=== PATIENT | female | born 1940 | race Caucasian/White ===

== ENCOUNTER → 2019-01-23 | Outpatient (CLI) | payer MEDICARE ==
[~2019-01-23] MED LIST: ATIVAN0.5 MG PO; CYMBALTA; HYDROCODONE-AP1 EAC6 PO; KEFLEX500 MG PO; LEVOTHYROXIN0.112 M1 PO; OXYCODONE HCL 55 MG PO; PREDNISONE; PROAIR HFA8.5 GM INH; XARELTO10 MG PO
== END ==
LOC: M.RAD 12-02 14:30
DX: M81.0 Age-related osteoporosis without current pathological fracture (principal); Z78.0 Asymptomatic menopausal state

== ENCOUNTER 2019-03-14 12:06 | Emergency (ER) | payer MEDICARE ==
[~2019-03-14] VITALS: Ht 172.7 cm; Wt 77.7 kg
[2019-03-14] MEDS ORDERED: SINGULAIR 10 MG10 M1 PO (12:35)
[2019-03-14] MEDS ORDERED: IBUPROFEN 200200 M1 PO (12:36)
[2019-03-14] MEDS ORDERED: TYLENOL PM EX-1 EACH PO (12:37)
[2019-03-14 12:46] LABS: PCO2 30.4 mmHg (35.0-45.0); PO2 106.4 mmHg (75.0-100.0); pH 7.454 (7.340-7.450)
[2019-03-14 12:49] LABS: ABSOLUTE BASOPHILS 0.1 thou/uL (0.0-0.2); ABSOLUTE EOSINOPHILS 0.1 thou/uL (0.0-0.7); ABSOLUTE MONOCYTES 0.7 thou/uL (0.0-1.2); ABSOLUTE NEUTROPHILS 5.1 thou/uL (1.6-8.1); BASOPHILS 1.2 %; HEMATOCRIT 40.1 % (37.0-47.0); HEMOGLOBIN 13.3 gm/dL (12.0-15.0); LYMPHOCYTES 24.8 %; MCH 29.8 pg (26.0-34.0); MCHC 33.1 g/dL (28.0-37.0); MONOCYTES 8.6 %; NUCLEATED RBCS 0 /100WBC; PLATELET COUNT* 440 thou/uL (150-400); POLYS 64.4 %; RBC 4.46 mil/uL (4.20-5.00); RDW-CV 14.7 % (10.5-14.5); WBC 7.9 thou/uL (4.0-11.0)
[2019-03-14 12:58] LABS: ANION GAP 11 mmol/L (7-16); BUN 12 mg/dL (7-18); CALCIUM 9.7 mg/dL (8.5-10.1); CHLORIDE 99 mmol/L (98-107); CO2 26 mmol/L (21-32); CREATININE 0.8 mg/dL (0.6-1.3); GLUCOSE 108 mg/dL (70-99); POTASSIUM 3.5 mmol/L (3.5-5.1); SODIUM 136 mmol/L (136-145)
[2019-03-14 13:09] LABS: ALBUMIN 3.9 g/dL (3.4-5.0); ALKALINE PHOSPHATASE 91 U/L (46-116); LIPASE 59 U/L (73-393); NT-PRO BRAIN NAT PEPTIDE 706 pg/mL (<300); SGOT 22 U/L (15-37); SGPT 17 U/L (30-65); TOTAL BILIRUBIN 0.7 mg/dL (<0.1-1.0); TOTAL PROTEIN 7.6 g/dL (6.4-8.2); TROPONIN-I LEVEL <0.06 ng/mL (<0.06)
[2019-03-14 13:10] LABS: PROTIME 10.5 Seconds (9.20-11.50)
[2019-03-14 15:30] LABS: URINE BLOOD 2+ (Negative); URINE CLARITY CLEAR; URINE COLOR YELLOW; URINE GLUCOSE-RANDOM NEGATIVE (Negative); URINE LEUKOCYTES-REFLEX TRACE (Negative); URINE NITRITE-REFLEX NEGATIVE (Negative); URINE PROTEIN TRACE (Negative); URINE SPECIFIC GRAVITY 1.025 (1.005-1.030); URINE UROBILINOGEN 0.2 E.U./dl (0.2-1.0)
[2019-03-14 15:32] LABS: ICTOTEST (BILI CONFIRMATORY) Negative (Negative); URINE BILIRUBIN 1+ (Negative); URINE KETONES 3+ (Negative)
[2019-03-14 15:38] LABS: MUCUS 0-3 Light strn/LPF (None Seen); SQUAMOUS >10 Many /LPF (0-3)
[2019-03-14 15:39] LABS: BACTERIA-REFLEX 1-9 Few /HPF (None Seen); URINE WBC-REFLEX 6-15 Few /HPF (0-5)
[2019-03-14 15:40] LABS: CASTS None Seen /LPF (None Seen); CRYSTALS None Seen /LPF (None Seen); URINE RBC 3-10 Few /HPF (0-2)
[2019-03-14] MEDS ORDERED: KEFLEX500 M1 PO (16:04)
[2019-03-14] MEDS ORDERED: KEFLEX500 M2 PO (16:05)
[2019-03-14 16:25] VITALS: BP 136/100
--- NOTE | 2019-03-14 16:37 | EKG ---
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 Engineer: T[place] : 1940 Requested By: Yomaira Negrete Order Number: [id number] MD: Colt Espinal Measurements Intervals [place] Rate: 83 P: 7 CA: 175 QRS: -31 QRSD: 105 T: 58 QT: 344 QTc: 405 Interpretive Statements Sinus rhythm Atrial premature complexes Left ventricular hypertrophy Anterior infarct, old Baseline wander in lead(s) V5 Compared to ECG 09/09/2015 10:35:37 Atrial premature complex(es) now present Myocardial infarct finding now present Sinus tachycardia no longer present T-wave abnormality no longer present Electronically Signed On 03-14-2019 16:37:36 CDT by Colt Espinal [email or web address] <ELECTRONICALLY SIGNED> By: Colt Espinal MD, FACC 03/14/19 1637 1215 1215 Colt Espinal MD, FAC /EPI
== END 2019-03-14 16:25 | disposition home or self-care (01) ==
LOC: M.ERS 12:06
PROVIDERS: Personal Emergency Response Attendant
DX: R41.0 Disorientation, unspecified (principal); I10 Essential (primary) hypertension; J44.9 Chronic obstructive pulmonary disease, unspecified; F41.9 Anxiety disorder, unspecified; F32.9 Major depressive disorder, single episode, unspecified; M79.7 Fibromyalgia; Z88.8 Allergy status to other drugs, medicaments and biological substances

== ENCOUNTER 2019-07-05 14:32 | Emergency (ER) | payer MEDICARE ==
[~2019-07-05] VITALS: Ht 175.3 cm; Wt 77.1 kg
[~2019-07-05 14:32] MED LIST changes: +IBUPROFEN 200200 M1 PO; +KEFLEX500 M1 PO; +KEFLEX500 M2 PO; +SINGULAIR 10 MG10 M1 PO; +TYLENOL PM EX-1 EACH PO
[2019-07-05 14:45] VITALS: BP 146/84
[2019-07-05] MEDS ORDERED: CELEXA10 MG PO (14:52)
[2019-07-05] MEDS ORDERED: NYSTATIN15 G1 TOP (15:10)
[2019-07-05] MEDS ORDERED: DIFLUCAN150 M1 PO (15:10)
== END 2019-07-05 15:15 | disposition home or self-care (01) ==
LOC: M.ERS 14:32
DX: B37.3 Candidiasis of vulva and vagina (principal); M79.7 Fibromyalgia; I10 Essential (primary) hypertension; J44.9 Chronic obstructive pulmonary disease, unspecified; F41.9 Anxiety disorder, unspecified; Z88.8 Allergy status to other drugs, medicaments and biological substances

== ENCOUNTER 2019-08-23 15:28 | Emergency (ER) | payer MEDICARE ==
[~2019-08-23] VITALS: Ht 177.8 cm; Wt 79.4 kg
[~2019-08-23 15:28] MED LIST changes: +CELEXA10 MG PO; +DIFLUCAN150 M1 PO; +NYSTATIN15 G1 TOP
[2019-08-23] MEDS ORDERED: NEURONTIN 300M300 M2 PO (15:40)
[2019-08-23 15:59] LABS: ABSOLUTE EOSINOPHILS 0.7 thou/uL (0.0-0.7); ABSOLUTE LYMPHOCYTES 1.5 thou/uL (0.8-5.3); ABSOLUTE MONOCYTES 0.5 thou/uL (0.0-1.2); ABSOLUTE NEUTROPHILS 4.8 thou/uL (1.6-8.1); BASOPHILS 0.5 %; EOSINOPHILS 9.1 %; HEMATOCRIT 35.4 % (37.0-47.0); HEMOGLOBIN 11.8 gm/dL (12.0-15.0); LYMPHOCYTES 19.9 %; MCH 30.8 pg (26.0-34.0); MCHC 33.5 g/dL (28.0-37.0); MCV 92.1 fL (80.0-100.0); MONOCYTES 6.9 %; MPV 7.2 fl. (7.2-11.1); NUCLEATED RBCS 0 /100WBC; PLATELET COUNT* 410 thou/uL (150-400); POLYS 63.6 %; RBC 3.84 mil/uL (4.20-5.00); RDW-CV 13.6 % (10.5-14.5); WBC 7.5 thou/uL (4.0-11.0)
[2019-08-23 16:09] LABS: PROTIME 10.2 Seconds (9.20-11.50)
[2019-08-23 16:18] LABS: BE 0.3 mmol/L (-2 to +3); PCO2 39.9 mmHg (35.0-45.0); PO2 95.3 mmHg (75.0-100.0); pH 7.412 (7.340-7.450)
[2019-08-23 16:39] LABS: ALBUMIN 3.1 g/dL (3.4-5.0); CALCIUM 8.8 mg/dL (8.5-10.1); CREATININE 0.7 mg/dL (0.6-1.3); POTASSIUM 4.4 mmol/L (3.5-5.1); TOTAL BILIRUBIN 0.4 mg/dL (<0.1-1.0); TOTAL PROTEIN 6.9 g/dL (6.4-8.2)
[2019-08-23] MEDS ORDERED: ZPAK PO (17:51)
[2019-08-23] MEDS ORDERED: PREDNISONE 10 M10 M1 PO (17:51)
[2019-08-23 18:54] VITALS: BP 160/90
--- NOTE | 2019-08-24 13:20 | EKG ---
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: [facility] : 1940 Requested By: Yomaira Negrete Order Number: [id number] MD: Addison John Measurements Intervals [place] Rate: 63 P: 42 NV: 216 QRS: -37 QRSD: 109 T: 62 QT: 397 QTc: 407 Interpretive Statements Sinus rhythm with first-degree AV block Left axis deviation Anterior infarct, old Baseline wander in lead(s) I Compared to ECG 03/14/2019 12:15:32 Left-axis deviation now present Atrial premature complex(es) no longer present Left ventricular hypertrophy no longer present Myocardial infarct finding still present Electronically Signed On 08-24-2019 13:20:26 CDT by Addison John [email or web address] <ELECTRONICALLY SIGNED> By: Addison John MD, FACC 08/24/19 1320 1533 1533 Addison John MD, FACC /EPI
== END 2019-08-23 18:55 | disposition home or self-care (01) ==
LOC: M.ERS 15:28
PROVIDERS: Personal Emergency Response Attendant
DX: J44.1 Chronic obstructive pulmonary disease with (acute) exacerbation (principal); F41.9 Anxiety disorder, unspecified; F32.9 Major depressive disorder, single episode, unspecified; M79.7 Fibromyalgia; Z88.8 Allergy status to other drugs, medicaments and biological substances

== ENCOUNTER 2019-10-03 07:16 | Emergency (ER) | payer MEDICARE ==
[~2019-10-03] VITALS: Ht 172.7 cm; Wt 81.7 kg
[~2019-10-03 07:16] MED LIST changes: +NEURONTIN 300M300 M2 PO; +PREDNISONE 10 M10 M1 PO; +ZPAK PO
[2019-10-03] MEDS ORDERED: LEVO-T100 MCG PO (07:30)
[2019-10-03 09:05] LABS: URINE BILIRUBIN NEGATIVE (Negative); URINE BLOOD 1+ (Negative); URINE CLARITY CLEAR; URINE COLOR YELLOW; URINE GLUCOSE-RANDOM NEGATIVE (Negative); URINE KETONES NEGATIVE (Negative); URINE NITRITE-REFLEX NEGATIVE (Negative); URINE PROTEIN TRACE (Negative); URINE SPECIFIC GRAVITY 1.015 (1.005-1.030); URINE UROBILINOGEN 0.2 E.U./dl (0.2-1.0)
[2019-10-03 09:08] LABS: URINE LEUKOCYTES-REFLEX 2+ (Negative)
[2019-10-03 09:11] LABS: SQUAMOUS 4-10 Moderate /LPF (0-3)
[2019-10-03 09:12] LABS: URINE WBC-REFLEX 6-15 Few /HPF (0-5)
[2019-10-03 09:13] LABS: CRYSTALS None Seen /LPF (None Seen); HYALINE CASTS 4-10 Moderate /LPF (None Seen); MUCUS 4-6 Moderate strn/LPF (None Seen)
[2019-10-03] MEDS ORDERED: NORCO 5-325 TA1 EAC1 PO (09:24)
[2019-10-03] MEDS ORDERED: KEFLEX500 M1 PO (09:24)
[2019-10-03 09:53] VITALS: BP 154/82
== END 2019-10-03 09:40 | disposition home or self-care (01) ==
LOC: M.ERS 07:16
PROVIDERS: Emergency Medicine Emergency Medical Services
DX: M54.5 Low back pain (principal); N39.0 Urinary tract infection, site not specified; I10 Essential (primary) hypertension; F41.9 Anxiety disorder, unspecified; F32.9 Major depressive disorder, single episode, unspecified; J44.9 Chronic obstructive pulmonary disease, unspecified; Z88.8 Allergy status to other drugs, medicaments and biological substances

== ENCOUNTER → 2019-10-15 | Outpatient (CLI) | payer MEDICARE ==
[~2019-10-15] MED LIST changes: +ASPIRIN325 PO; +CEFUROXIME250 MG PO; +HYDROCODON-ACE1 EAC7 PO; +HYDROXYZINE HCL25 M2 PO; +LEVO-T100 MCG PO; +MELATONIN10 M3 PO; +NORCO 5-325 TA1 EAC1 PO; +NYSTATIN15 G2 TOP; +SENNA PLUS TAB1 EACH PO
== END ==
LOC: M.MRI 10-13 14:30
DX: M47.817 Spondylosis without myelopathy or radiculopathy, lumbosacral region (principal); M41.86 Other forms of scoliosis, lumbar region; M51.46 Schmorl's nodes, lumbar region; M48.07 Spinal stenosis, lumbosacral region; M48.061 Spinal stenosis, lumbar region without neurogenic claudication; M51.25 Other intervertebral disc displacement, thoracolumbar region; M47.815 Spondylosis without myelopathy or radiculopathy, thoracolumbar region; M51.26 Other intervertebral disc displacement, lumbar region

== ENCOUNTER 2019-10-16 09:31 | Inpatient (IN) | payer MEDICARE ==
[~2019-10-16] VITALS: Ht 175.3 cm; Wt 86.5 kg
[~2019-10-16 09:31] MED LIST changes: -ASPIRIN325 PO; -CEFUROXIME250 MG PO; -HYDROCODON-ACE1 EAC7 PO; -HYDROXYZINE HCL25 M2 PO; -MELATONIN10 M3 PO; -NYSTATIN15 G2 TOP; -SENNA PLUS TAB1 EACH PO
[2019-10-16 09:32] VITALS: BP 163/91
[2019-10-16 10:27] LABS: HEMATOCRIT 39.8 % (37.0-47.0); HEMOGLOBIN 13.1 gm/dL (12.0-15.0); MCH 30.5 pg (26.0-34.0); MCV 92.5 fL (80.0-100.0); MPV 6.9 fl. (7.2-11.1); NUCLEATED RBCS 0 /100WBC; PLATELET COUNT* 384 thou/uL (150-400); RDW-CV 14.8 % (10.5-14.5); WBC 10.6 thou/uL (4.0-11.0)
[2019-10-16 10:31] LABS: URINE BILIRUBIN NEGATIVE (Negative); URINE BLOOD 2+ (Negative); URINE CLARITY SL CLOUDY; URINE COLOR YELLOW; URINE GLUCOSE-RANDOM NEGATIVE (Negative); URINE KETONES NEGATIVE (Negative); URINE LEUKOCYTES-REFLEX 2+ (Negative); URINE NITRITE-REFLEX POSITIVE (Negative); URINE PROTEIN 2+ (Negative); URINE SPECIFIC GRAVITY 1.025 (1.005-1.030); URINE UROBILINOGEN 0.2 E.U./dl (0.2-1.0)
[2019-10-16 10:35] LABS: INR 1.1; PROTIME 10.8 Seconds (9.20-11.50)
[2019-10-16 10:39] LABS: MUCUS 0-3 Light strn/LPF (None Seen); SQUAMOUS 4-10 Moderate /LPF (0-3); URINE RBC 3-10 Few /HPF (0-2); URINE WBC-REFLEX 6-15 Few /HPF (0-5)
[2019-10-16 10:40] LABS: AMORPHOUS PHOSPHATES Few /LPF (None Seen); FINE GRANULAR CASTS 0-3 Few /LPF (None Seen)
[2019-10-16 10:42] LABS: POTASSIUM 3.5 mmol/L (3.5-5.1); TOTAL BILIRUBIN 0.8 mg/dL (<0.1-1.0); TOTAL PROTEIN 7.7 g/dL (6.4-8.2)
[2019-10-16 10:47] LABS: ABSOLUTE BASOPHILS 0.1 thou/uL (0.0-0.2); ABSOLUTE MONOCYTES 0.7 thou/uL (0.0-1.2); ABSOLUTE NEUTROPHILS 8.8 thou/uL (1.6-8.1); ANISOCYTOSIS 1+; PLATELET ESTIMATE ADEQUATE; POIKILOCYTOSIS 1+
[2019-10-16 10:49] LABS: ALBUMIN 3.7 g/dL (3.4-5.0); CALCIUM 8.9 mg/dL (8.5-10.1); CREATININE 0.7 mg/dL (0.6-1.3)
--- NOTE | 2019-10-16 11:32 | NUR ---
WILBERTO Urbna NOTIFIED UPON PT RETURN FROM CT AND THAT SHE WAS NOT CONNECTED TO O2 SHE WAS NOT PRIOR TO GOING TO CT. PT WAS CONNECTED TO EKG AND PULSE OX MONITOR SHE WAS PRIOR TO GOING TO CT
[2019-10-16 12:13] VITALS: BP 166/82
[2019-10-16 13:00] VITALS: BP 156/78
--- NOTE | 2019-10-16 15:19 | EKG ---
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: : 1940 Requested By: Nadir Rodriguez Order Number: [id number] MD: Joshua Coleman Measurements Intervals [place] Rate: 91 P: 50 OK: 207 QRS: -43 QRSD: 108 T: 105 QT: 345 QTc: 425 Interpretive Statements Sinus rhythm Borderline prolonged OK interval Consider left atrial enlargement LVH with secondary repolarization abnormality Anterior Q waves, possibly due to LVH Baseline wander in lead(s) I,aVL Compared to ECG 08/23/2019 15:33:48 no change Electronically Signed On 10-16-2019 15:19:31 GIRLS TENNIS COACH by Joshua Coleman [email or web address] <ELECTRONICALLY SIGNED> By: Joshua Coleman MD, [facility] 10/16/19 1519 1008 1008 Joshua Coleman MD, [facility] /EPI
--- NOTE | 2019-10-16 18:39 | NUR ---
PT AWAKE AND ALERT, BUT CONFUSED. HX DEMENTIA. PT IN BED WITH CALL LIGHT IN REACH, BED ALARM SET FOR SAFETY. PT REMOVED STAT-LOCK FROM VARMA X2. RFA SECURED WITH COBAN TO ATTEMPT TO PROTECT ACCESS. PT REMOVES DRESSINGS. PT FOUND TO BE SITTING AT END OF BED UPON RESPONDING TO BED ALARM. PT ASSISTED BACK TO BED AND ALARM RESET. HOUSE SUPER NOTIFIED OF PT NEED FOR EXTRA OBSERVATION. IV MEDS SUSPENDED AT THIS TIME PT WILL NOT STOP PULLING ON TUBES AND REMOVING PROTECTIVE DRESSINGS AT THIS TIME. VARMA REMAINS PATENT AND YELLOW URINE VISIBLE IN COLLECTION BAG. PT OFFERED VEGETARIAN DINNER OPTION, LESS THAN 25% OF MEAL CONSUMED. WILL CONTINUE TO MONITOR.
[2019-10-16 20:00] VITALS: BP 132/71
[2019-10-17 02:10] LABS: GLYCOHEMOGLOBIN (HGB A1C) 5.6 % (4.8-5.6)
[2019-10-17 04:07] LABS: HEMATOCRIT 34.5 % (37.0-47.0); HEMOGLOBIN 11.3 gm/dL (12.0-15.0); MCH 30.5 pg (26.0-34.0); MCHC 32.7 g/dL (28.0-37.0); MCV 93.1 fL (80.0-100.0); MPV 7.1 fl. (7.2-11.1); RBC 3.71 mil/uL (4.20-5.00); RDW-CV 15.2 % (10.5-14.5); WBC 7.9 thou/uL (4.0-11.0)
[2019-10-17 04:37] LABS: ALBUMIN 3.1 g/dL (3.4-5.0); CALCIUM 8.1 mg/dL (8.5-10.1); CREATININE 0.8 mg/dL (0.6-1.3); POTASSIUM 3.6 mmol/L (3.5-5.1); TOTAL BILIRUBIN 0.8 mg/dL (<0.1-1.0); TOTAL PROTEIN 6.3 g/dL (6.4-8.2)
--- NOTE | 2019-10-17 06:14 | NUR ---
PT SETTING OFF BED ALARM 3 TIMES OVERNIGHT PUTTING LEGS TO SIDE OF BED. AO TO SELF, CONFUSED AND FORGETFUL. CALMS EASILY WHEN IT IS EXPLAINED WHY SHE IS HERE AND PLAN OF CARE. VARMA DRAINING DARK YELLOW, EMPERATRIZ URINE. L ELBOW SKIN TEAR CLEANSED AND DRSG PLACED. HAS BEEN NPO SINCE MIDNIGHT PER ORDERS. AM LABS DRAWN. R HAND IVF INFUSING PER PUMP, ABX GIVEN ORDERED. RED INFLAMMED TIMO AREA, [place] CREAM APPLIED ORDERED. ORTHO FOLLOWING FOR L HIP FX REPAIR. PULLS OF VARMA CATHETER STAT LOCKS, SEEN PULLING AT IV ONCE THIS SHIFT BUT STOPPED WHEN EXPLAINED WHAT IS WAS AND WHY IT WAS THERE. CALL LITE IN EASY REACH, BED ALARM ON FOR SAFETY. FALL PRECAUTIONS IN PLACE.
--- NOTE | 2019-10-17 07:02 | NUR ---
PT TRANSFERRED PER BED TO ROOM 304 FOR CLOSER OBSERVATION, WITH BELONGINGS. BED ALARM ON FOR SAFETY. CALL LITE IN EASY REACH.
[2019-10-17 07:35] VITALS: BP 138/77
[2019-10-17 08:44] VITALS: BP 132/71
--- NOTE | 2019-10-17 10:30 | NUR ---
MET WITH PT, SPOUSE/KAREEM AND SON/ELSI TO DISCUSS HOME SITUATION/DC PLANNING. PT LIVES WITH SPOUSE AND SON. SHE NEEDS ASSIST WITH ADLS BUT IS FAIRLY INDEPENDENT. PER KAREEM, SHE USES A CANE BUT SHOULD USE A WALKER D/T HER 'UNSTEADINESS.' KAREEM IS DPOA AND WAS INSISTENT THAT PT STATES SHE IS 'DNR.' NURSE AND DR HORTA UPDATED. PT HAS EQUIPMENT AT HOME THAT SHE USES NEEDED. IE: WALKER, W/C, GRAB BARS, SCOOTER, CANE, TOILET RISER BSC AND GAIT BELT. SHE HAS HAD HH IN PAST THEY THINK THRU JS AT HOME. PT HAS NOT BEEN TO SNF BUT ALL IN AGREEMENT PROBABLY NEEDS TO GO THERE AT DC. GAVE LIST AND DISCUSSED OPTIONS. THEY ARE INTERESTED IN [facility] OR [facility]. WILL FOLLOW AND REASSESS AFTER SURGERY AND THERAPY
--- NOTE | 2019-10-17 11:40 | NUR ---
PT AWAKE/ALERT VSS. PT TRANSPORTED TO PACU ON CART WITH NS RUNNING.
--- NOTE | 2019-10-17 11:58 | NUR ---
WOUND CARE NOTE: CONSULTS RECEIVED FOR PERINEAL DESQUAMATION AND ABRASIONS, SKIN TEARS LEANDRA ATTEMPTED TO ASSESS PATIENT. SHE IS CURRENTLY IN SURGERY.
--- NOTE | 2019-10-17 18:41 | NUR ---
PT RETURNED TO UNIT APPROX 1710. PT AWAKE/ALERT, VSS. PT URINARY CATHETER PATENT, YELLOW URINE VISIBLE IN COLLECTION DEVICE PT PLACED ON CONTINUOUS O2 SAT MONITORING ORDERED. PT ON 3L O2. PT ARRIVED TO UNIT WITH ICE PACK TO L HIP. FAMILY AT BEDSIDE. BED ALARM ON FOR PT SAFETY. PT RESTS IN ROOM IN VIEW OF THE NURSES STATION. CALL LIGHT IN REACH. WILL CONTINUE TO MONITOR.
[2019-10-17 20:47] VITALS: BP 109/78
[2019-10-18] VITALS: BP 125/77
[2019-10-18 04:09] LABS: HEMATOCRIT 27.3 % (37.0-47.0); MCHC 33.1 g/dL (28.0-37.0); MCV 93.7 fL (80.0-100.0); MPV 7.6 fl. (7.2-11.1); RBC 2.91 mil/uL (4.20-5.00); RDW-CV 15.6 % (10.5-14.5); WBC 10.6 thou/uL (4.0-11.0)
[2019-10-18 04:22] LABS: CALCIUM 8.2 mg/dL (8.5-10.1); CREATININE 0.9 mg/dL (0.6-1.3); MAGNESIUM 2.1 mg/dL (1.8-2.4); POTASSIUM 4.2 mmol/L (3.5-5.1)
--- NOTE | 2019-10-18 06:43 | NUR ---
Pt restless and impulsive for early part of shift. Pt attempted to get out of bed on two occasions; once at 2044, and again at 139. Dressing became saturated with sanguinous drng after first attempt to get out of bed. Dressing changed after second attempt. Some slow oozing from incision site noted, but rudolph intact. New dressing remains dry and intact this morning. Abduction pillow placed this am. Pt did not have one for most of shift. Pt had pulled IV out early in shift, pulled off ID and DNR bracelets, and removed stat-lock from zavala 3 times. Pt also removed NC at times; desats to mid-80s when on RA. Low output from zavala overnight: 195 ml concentrated ira urine. Still receiving IVF @ 100 ml/hr. Pt received dose of Fentanyl times one after 2nd attempt at getting out of bed. Pt denied pain, but was frequently groaning in pain. Pt was much calmer and more cooperative after receiving the Fentanyl, and appeared to be asleep for much of the remainder of the shift. Will continiue to monitor.
[2019-10-18 07:19] VITALS: BP 135/67
--- NOTE | 2019-10-18 14:03 | NUR ---
ASSESSMENT COMPLETE. PT ALERT AND ORIENTED TO SELF. PT CONFUSED AND FORGETFUL. FAMILY AT BEDSIDE MOST OF THE DAY. TOLERATING 50% OF MEALS. PT HAS VARMA IN PLACE FOR IMMOBILITY. PT Q2 TURN. ABDUCTOR IN PLACE. PT UP IN CHAIR FOR 2 HOURS TODAY. PHYSICAL THERAPY WORKED WITH PATIENT THIS MORNING. UP MOD ASSIST WITH GAIT BELT AND WALKER. PT IS ON ROOM AIR, VSS. REHAB CONSULT. PT TOLERATING MEALS AND DENIES N/V. PAIN MEDICATIONS GIVEN NEEDED. SEE ASSESSMENT AND VITALS FOR OTHER DETAILS. CALL LIGHT WITHIN REACH. BED ALARM ON. WILL CONTINUE PLAN OF CARE
[2019-10-18 15:23] VITALS: BP 100/60
[2019-10-18 19:30] VITALS: BP 131/72
[2019-10-19 04:35] LABS: ABSOLUTE BASOPHILS 0.1 thou/uL (0.0-0.2); ABSOLUTE EOSINOPHILS 0.1 thou/uL (0.0-0.7); ABSOLUTE LYMPHOCYTES 2.2 thou/uL (0.8-5.3); ABSOLUTE MONOCYTES 1.1 thou/uL (0.0-1.2); ABSOLUTE NEUTROPHILS 4.3 thou/uL (1.6-8.1); BASOPHILS 0.8 %; EOSINOPHILS 1.3 %; HEMATOCRIT 21.8 % (37.0-47.0); HEMOGLOBIN 7.3 gm/dL (12.0-15.0); MCHC 33.3 g/dL (28.0-37.0); MCV 93.1 fL (80.0-100.0); MONOCYTES 13.7 %; MPV 7.3 fl. (7.2-11.1); NUCLEATED RBCS 1 /100WBC; PLATELET COUNT* 310 thou/uL (150-400); POLYS 56.2 %; RBC 2.34 mil/uL (4.20-5.00); RDW-CV 15.5 % (10.5-14.5); WBC 7.7 thou/uL (4.0-11.0)
[2019-10-19 04:40] LABS: ALBUMIN 2.6 g/dL (3.4-5.0); CALCIUM 8.1 mg/dL (8.5-10.1); CREATININE 1.1 mg/dL (0.6-1.3); TOTAL BILIRUBIN 0.3 mg/dL (<0.1-1.0); TOTAL PROTEIN 5.8 g/dL (6.4-8.2)
--- NOTE | 2019-10-19 05:20 | NUR ---
ASSUMED PATIENT CARE AT 1900. PATIENT ALERT TO SELF. TOOK ALL MEDICATION BY MOUTH. COMPULSIVE. ATTEMPTED TO GET OUT OF BED A COUPLE OF TIMES. FALL RISK PRECAUTIONS IN PLACE. HIP PRECATIONS IN PLACE. SURGICAL WOUND REDRESSED R/T PATIENT MOVEMENT CAUSING BLEEDIND. ALL MACK IN PLACE AND WOUND APPROXIMATED WELL. NEW DRESSING C/D/I. INFECTION CONTROL SPECIALIST AND HOURLY ROUNDING COMPLETED CHARTED.
[2019-10-19 08:00] VITALS: BP 152/79
[2019-10-19 16:00] VITALS: BP 136/68
[2019-10-19 17:16] VITALS: BP 141/82; BP 145/87
--- NOTE | 2019-10-19 18:36 | NUR ---
ASSESSMENT COMPLETE. PT CONFUSED AND IMPULSIVE THROUGHOUT THE DAY. IV PULLED OUT. PT CLIMBED OUT OF BED MULTIPLE TIMES AND PULLS AT VARMA. PT HAD TRANSFUSION STARTED THIS EVENING. DUE TO PT CLIMBING OUT OF BED AND NOT FOLLOWING HIP PRECUATIONS, XRAY OF HIP DONE RESULTS WNL. PT HAS CONTINOUS PULSE OX WHILE BLOOD IS TRANSFUSING. SEE ASSESSMENT AND VITALS FOR OTHER DETAILS. CALL LIGHT WITHIN REACH. BED ALARM ON. WILL CONTINUE PLAN OF CARE
[2019-10-19 20:00] VITALS: BP 141/82; BP 145/87; BP 150/88; BP 151/82; BP 156/82; BP 162/87; BP 168/75
--- NOTE | 2019-10-20 05:21 | NUR ---
ASSESSMENT: PT REMAIN ALERT TO PERSON ONLY. CONFUSED TO PLACE, THOUGHT THAT SHE WAS IN HER HOME AND NEEDED TO GET IN BED. DOES NOT FOLLOW HIP PRECAUTIONS. EASY TO REDIRECT BUT NOT TO ORIENT. TOLERATED THE BLOOD TRANSFUSION. DID HAVE A LOW GRADE TEMP. SATS REMAINED > THAN 95%. VARMA PATENT, WITH EMPERATRIZ COLORED OUTPUT. LEFT HIP NOTED WITH DRESSING INTACT AND REINENFORCED. SLEPT MOST OF THE NIGHT. DID NOT GET OOB, BED ALAR, SEYT. SLOW PROGRESS TOWARDS DC GOALS, WILL CONTINUE TO MONITOR,
[2019-10-20 08:25] LABS: HEMATOCRIT 25.5 % (37.0-47.0); HEMOGLOBIN 8.7 gm/dL (12.0-15.0); MCH 31.1 pg (26.0-34.0); MCHC 34.2 g/dL (28.0-37.0); MPV 6.9 fl. (7.2-11.1); RBC 2.8 mil/uL (4.20-5.00); RDW-CV 15.6 % (10.5-14.5); WBC 8.3 thou/uL (4.0-11.0)
[2019-10-20 08:39] LABS: ALBUMIN 2.8 g/dL (3.4-5.0); CALCIUM 8.2 mg/dL (8.5-10.1); CREATININE 0.9 mg/dL (0.6-1.3); POTASSIUM 3.5 mmol/L (3.5-5.1); TOTAL BILIRUBIN 0.8 mg/dL (<0.1-1.0); TOTAL PROTEIN 6.3 g/dL (6.4-8.2)
--- NOTE | 2019-10-20 14:13 | NUR ---
ELLIOTT faxed referral for SNF to pt/family preference of [facility] and spoke with Yessy in admissions who is reviewing referral and may have a bed available for pt possible dc tomorrow. SW to continue to follow to assist with finalizing safe dc plan/SNF placement. Other possible pt/family choice of [facility], ELLIOTT spoke with their admissions who said bed availability was limited. [facility] ph [phone]
--- NOTE | 2019-10-20 15:22 | NUR ---
WOUND CARE NOTE: CONSULT RECEIVED FOR PERINEAL DESQUAMINATION AND LACERATIONS TO THE LEFT ARM. LEFT ARM WITH MULTIPLE, STABLE SCABS. ECCHYMOSIS NOTED. LEFT OPEN TO AIR. PERINEAL AREA, BETWEEN BUTTOCKS, BILATERAL GROIN RED, MOIST, DENUDED. BELIEVE THIS TO BE A CONTACT DERMATITIS FROM MOISTURE. RECOMMEND USING Z-GUARD BARRIER OINTMENT TO AREA BID AND PRN. PATIENT DENIES PAIN TO THIS AREA. PATIENT HAS REMOVED LEFT HIP DRESSING, REAPPLIED ABDS AND PAPER TAPE.
[2019-10-20 16:00] VITALS: BP 136/63
--- NOTE | 2019-10-20 16:56 | NUR ---
ASSESSMENT COMPLETE. PT ALERT AND ORIENTED X1. FAMILY AT BEDSIDE MOST OF THE DAY. VSS. UP IN CHAIR PART OF THE DAY. Q2 TURN. WOUND CARE ROUNDED FOR REDNESS TO TIMO AREA AND BUTTOCK, PT REFUSES PICTURES. KOJO RUSSO'D, PATIENT UP TO BSC TO VOID. DRESSING TO LEFT HIP CHANGED WITH WOUND CARE. SEE ASSESSMENT AND VITALS FOR OTHER DETAILS. CALL LIGHT WITHIN REACH, BED ALARM ON. WILL CONTINUE PLAN OF CARE
[2019-10-21 03:38] VITALS: BP 145/78
[2019-10-21 04:14] LABS: MCH 31.4 pg (26.0-34.0); MCHC 34.5 g/dL (28.0-37.0); RBC 2.53 mil/uL (4.20-5.00); RDW-CV 15.4 % (10.5-14.5); WBC 8.7 thou/uL (4.0-11.0)
[2019-10-21 04:26] LABS: CALCIUM 8.5 mg/dL (8.5-10.1); CREATININE 0.8 mg/dL (0.6-1.3); POTASSIUM 3.8 mmol/L (3.5-5.1)
--- NOTE | 2019-10-21 05:02 | NUR ---
PT AO TO SELF AND SITUATION AT HS, IMPULSIVE SETTING OFF BED ALARM SITTING UP AT SIDE OF BED. DRSG INTACT TO L HIP WITH SMALL AMOUNT SEROSANG DRAINAGE PRESETN. PO PAIN MED AT HS AND PT ABLE TO SLEEP FAIRLY WELL OVERNIGHT,INCONTINENT URINE. TIMO AREA RED, CREAM APPLIED ORDERED. AM LABS DRAWN. RFA SL. CALL LITE IN EASY REACH, BED ALARM ON FOR SAFETY. PLAN FOR DC TO SNF TODAY IF BED AVAILABLE. AM LABS.
[2019-10-21 07:40] VITALS: BP 120/84
[2019-10-21] MEDS ORDERED: SENNA PLUS TAB1 EACH PO (08:44)
[2019-10-21] MEDS ORDERED: CEFUROXIME250 MG PO (08:44)
[2019-10-21] MEDS ORDERED: ASPIRIN325 PO (08:44)
[2019-10-21] MEDS ORDERED: MELATONIN10 M3 PO (08:44)
[2019-10-21] MEDS ORDERED: HYDROXYZINE HCL25 M2 PO (08:44)
[2019-10-21] MEDS ORDERED: HYDROCODON-ACE1 EAC7 PO (08:44)
[2019-10-21] MEDS ORDERED: NYSTATIN15 G2 TOP (08:51)
[2019-10-21 12:47] VITALS: BP 120/84
--- NOTE | 2019-10-21 13:47 | NUR ---
ELLIOTT spoke with pt, pt , and pt son about dc planning to SNF and all in agreement with plan for SNF at [facility]. ELLIOTT faxed final orders and med list/dc summary to admissions at [facility] SNF and spoke with Yessy in admissions who arranged transportation for between 4:30 and 5:00. Pt nurse aware. Chart copied for continuation of care.
--- NOTE | 2019-10-21 16:13 | NUR ---
PATIENT UP TO CHAIR FOR MEALS AND WITH THERAPY. PRN HYDROCODONE GIVEN FOR LEFT HIP PAIN. MEPILEX AG PLACED TO LEFT HIP MACK. IV DC'D. PATIENT TO DISCHARGE TO [facility] THIS EVENING. PATIENT AND SON AWARE AND AT BEDSIDE. PATIENT REMAINS CONFUSED BASELINE. PATIENT TO DISCHARGE VIA WHEELCHAIR VAN BETWEEN 430-500.
--- NOTE | 2019-10-22 11:54 | OP ---
[address] [address] OPERATIVE REPORT Name: AGA DUONG Room: [address] IN .R.#: [id number] Admission: 10/16/19 Attend Phys: Lis Lea MD Discharge: 10/21/19 Date of : 44 Report #: [id number] THIS REPORT FOR: //name// CC: Iván Santoro DATE OF SERVICE: 10/17/2019 PREOPERATIVE DIAGNOSIS: Displaced closed subcapital left hip fracture. POSTOPERATIVE DIAGNOSIS: Displaced closed subcapital left hip fracture. OPERATION PERFORMED: Hemiarthroplasty, left hip. SURGEON: Addison Arias DO CLINICAL ACADEMIC ALLERGIST: Munir Hardy DO ANESTHESIA: General. GROSS PATHOLOGY: There was evidence of a displaced subcapital left hip fracture. There were contractures about the left hip. IMPLANTS UTILIZED: Joy femoral stem size 15, bipolar cup 49 mm with a +0 neck length. DESCRIPTION OF PROCEDURE: The patient was brought to the operating room where general anesthetic was administered. The patient is on scheduled antibiotics. After the anesthetic was introduced, the patient was placed on the operating table in lateral position, left hip up. Hibiclens scrub and a ChloraPrep prep were done to the left hip, leg in the usual manner. The patient was draped in a sterile manner. An incision was then made approximately 5 inches in length on the lateral aspect of the left hip. It was carried down through the skin and subcuticular material by sharp dissection. Tensor fascia percy was split in line with the incision. Gluteus medius and minimus were then detached at the musculotendinous junction at the greater trochanter. Atrophy of these muscles was noted. An opening T-type capsulotomy was performed. Femoral neck was marked. Osteotomy was performed. Femoral head was removed with a trial 49 being the best fit. Attention was turned to the femur. The box osteotome was utilized to remove the medial portion of the greater trochanter. The T-reamer was placed down the shaft and the trochanteric broach was also utilized to lateralize the femur. The femur was then broached up to size 15, which was noted to fit well. Trial reduction was performed with the above sizes. They fit well. The hip was stable. They were removed. The final femoral stem was impacted into position with bone graft placed around the [place] [address] OPERATIVE REPORT Name: AGA DUONG Room: [address] IN [facility]#: [id number] Admission: 10/16/19 Attend Phys: Lis Lea MD Discharge: 10/21/19 Date of : 44 Report #: [id number]. The bipolar cup was assembled, placed on the femoral neck, impacted into position. The hip was reduced. Components fit well and the hip was stable. The remaining portion of the capsule was closed with a 1 Vicryl suture. Gluteus medius and minimus were reattached with a #5 Ticron suture, #1 Vicryl tensor fascia percy, subq 2-0 Vicryl, rudolph on the skin. Estimated blood loss approximately 450 mL. The area was anesthetized at closing with approximately 30 mL of Marcaine 0.5% plain. Sterile dressing was applied. The patient was transferred to recovery room in good condition. Both legs were in good position. <ELECTRONICALLY SIGNED> By: Raleigh More DO 10/22/19 1154 1552 1932Addison Arias DO /nt
== END 2019-10-21 17:44 | DRG 469 ==
LOC: M.ERS 09:31 → M.TBA-ER 11:01 → M.3W 11:01
PROVIDERS: Emergency Medicine; Orthopaedic Surgery; ADMIT Internal Medicine
PROC: 0SRS0JZ Replacement of Left Hip Joint, Femoral Surface with Synthetic Substitute, Open Approach (ICD-10-PCS; principal; 2019-10-17)
DX: S72.012A Unspecified intracapsular fracture of left femur, initial encounter for closed fracture (principal); G92 Toxic encephalopathy; S32.009A Unspecified fracture of unspecified lumbar vertebra, initial encounter for closed fracture; E44.0 Moderate protein-calorie malnutrition; N39.0 Urinary tract infection, site not specified; W18.39XA Other fall on same level, initial encounter; I10 Essential (primary) hypertension; J42 Unspecified chronic bronchitis; F32.9 Major depressive disorder, single episode, unspecified; F03.90 Unspecified dementia, unspecified severity, without behavioral disturbance, psychotic disturbance, mood disturbance, and anxiety; F41.9 Anxiety disorder, unspecified; M79.7 Fibromyalgia; S51.812A Laceration without foreign body of left forearm, initial encounter; B35.6 Tinea cruris; F02.80 Dementia in other diseases classified elsewhere, unspecified severity, without behavioral disturbance, psychotic disturbance, mood disturbance, and anxiety; D64.9 Anemia, unspecified; Z68.28 Body mass index [BMI] 28.0-28.9, adult; Z79.2 Long term (current) use of antibiotics; Y93.89 Activity, other specified; Y92.89 Other specified places as the place of occurrence of the external cause; Z99.81 Dependence on supplemental oxygen; Z79.899 Other long term (current) drug therapy; Z88.8 Allergy status to other drugs, medicaments and biological substances; Y99.8 Other external cause status; Z79.82 Long term (current) use of aspirin; Z79.891 Long term (current) use of opiate analgesic

== ENCOUNTER 2019-11-03 11:05 | Inpatient (IN) | payer MEDICARE ==
[~2019-11-03] VITALS: Ht 175.3 cm; Wt 86.2 kg
[~2019-11-03 11:05] MED LIST changes: +ASPIRIN325 PO; +CEFUROXIME250 MG PO; +HYDROCODON-ACE1 EAC7 PO; +HYDROXYZINE HCL25 M2 PO; +MELATONIN10 M3 PO; +NYSTATIN15 G2 TOP; +SENNA PLUS TAB1 EACH PO
[2019-11-03 11:06] VITALS: BP 129/71
[2019-11-03] MEDS ORDERED: BACLOFEN5 MG PO (11:22)
[2019-11-03] MEDS ORDERED: FLEET ENEMA133 ML RC (11:24)
[2019-11-03] MEDS ORDERED: DULCOLAX10 MG RC (11:24)
[2019-11-03] MEDS ORDERED: MELATONIN5 MG SUBLING (11:25)
[2019-11-03] MEDS ORDERED: MILK OF MA2400 MG/11 PO (11:26)
[2019-11-03] MEDS ORDERED: MIRALAX119 GM PO (11:26)
[2019-11-03] MEDS ORDERED: ACETAMINOPHEN500 M1 PO (11:27)
[2019-11-03 11:50] LABS: HEMATOCRIT 28.4 % (37.0-47.0); HEMOGLOBIN 9.5 gm/dL (12.0-15.0); MCH 30.9 pg (26.0-34.0); MCHC 33.3 g/dL (28.0-37.0); MCV 92.9 fL (80.0-100.0); MPV 6.5 fl. (7.2-11.1); NUCLEATED RBCS 0 /100WBC; PLATELET COUNT* 691 thou/uL (150-400); RBC 3.06 mil/uL (4.20-5.00); RDW-CV 17.4 % (10.5-14.5); WBC 7.2 thou/uL (4.0-11.0)
[2019-11-03 11:59] LABS: CALCIUM 9.1 mg/dL (8.5-10.1); CREATININE 0.8 mg/dL (0.6-1.3); POTASSIUM 3.4 mmol/L (3.5-5.1)
[2019-11-03 12:00] LABS: APTT 28.3 Seconds (25.0-31.3); INR 1.1; PROTIME 11.6 Seconds (9.20-11.50)
[2019-11-03 12:13] LABS: ALBUMIN 3.1 g/dL (3.4-5.0); TOTAL BILIRUBIN 0.5 mg/dL (<0.1-1.0); TOTAL PROTEIN 7.3 g/dL (6.4-8.2)
[2019-11-03 12:38] LABS: ABSOLUTE EOSINOPHILS 0.4 thou/uL (0.0-0.7); ABSOLUTE LYMPHOCYTES 1.4 thou/uL (0.8-5.3); ABSOLUTE MONOCYTES 0.7 thou/uL (0.0-1.2); ABSOLUTE NEUTROPHILS 4.7 thou/uL (1.6-8.1); METAMYELOCYTES 1 %; PLATELET ESTIMATE INCREASED
[2019-11-03 17:48] VITALS: BP 143/69
[2019-11-03 17:52] VITALS: BP 143/69
[2019-11-03 20:00] VITALS: BP 135/67
[2019-11-03 20:51] LABS: BF RBC 660704 /mm3; TOTAL CELL COUNT 1854 /mm3
[2019-11-03 20:55] LABS: SOURCE LEFT HIP
[2019-11-03 20:57] LABS: CLARITY TURBID; TOTAL VOLUME 28 ml
[2019-11-03 21:30] LABS: BF EOSINOPHILS 9 %; BF LYMPHOCYTES 36 %; BF MONOCYTES 10 %; BF POLYS 45 %
--- NOTE | 2019-11-04 02:34 | NUR ---
CHECKED ON PT AT 0120 AND FOUND PT HAD PULLED OFF WOUND VAC ON LT HIP. [facility] DSG STILL C/D/I BUT [facility] OF WOUND VAC REMOVED. CALL PLACED TO DR WATSON @ [phone] AT 0130 WITH NO CALL BACK. CONTACTED CHAPISSI RN AT 0200, CAR HEAD LINER INSTALLER AT 0213 AND LEAD NURSE ON TELE AT 0215 FOR GUIDANCE. CALL PLACED TO DR WATSON'S ANSW SERVICE AGAIN AT 0230. DR CONTRERAS ON LINE AND SAID WAS OK TO PLACE 4X4 GUAZE OVER SITE AND IT WOULD BE ADDRESSED LATER THIS AM. PT IS RESTING COMFORTABLY AT THIS TIME. WILL CONTINUE TO MONITOR.
--- NOTE | 2019-11-04 04:55 | NUR ---
PATIENT AWAKE SECOND HALF OF THE NIGHT. PT HAS BEEN CONFUSED AND COMBATIVE. PT PULLED OFF WOUND VAC; FOLDED 4X4 PLACED OVER IT PER DR ORDER. PT PULLED OUT IV AND REFUSING TO ALLOW ANOTHER IV TO BE RESTARTED; ALSO REFUSED MORNING LABS. PT INCONTINENT OF BOWEL AND BLADDER. PT IS QUIET AT THIS TIME. SIDERAILS UPX4 AND BED ALARM ON. CALL LIGHT WITHIN REACH. WILL CONTINUE TO MONITOR.
[2019-11-04 07:40] VITALS: BP 134/65
--- NOTE | 2019-11-04 08:06 | NUR ---
Nutrition: Pt admitted with wound dehiscence from hip incision. Consult received. Regular diet ordered. Wt: 189#. Albumin 3.1, prealb 11.3. Wound VAC to be replaced today. Will disch back to nursing facility when ready. RD ordered Pavan to aid in wound healing. Recommend MVI as well. Encourage good po intake. Mild risk.
[2019-11-04] MEDS ORDERED: KEFLEX500 M2 PO (11:13)
[2019-11-04 12:47] VITALS: BP 134/65
--- NOTE | 2019-11-04 13:00 | NUR ---
PT.TO DISCHARGE BACK TO [facility] WHERE SHE WAS FOR A SKILLED STAY SINCE OCT.21. NOTIFIED BENITEZ/PORFIRIO AND FAXED DISCHARGE ORDERS AND ORTHO ORDERS TO HER. CHART COPIED TO GO WITH PT. TOREY CARMONA TO CALL REPORT. BENITEZ ARRANGED VAN FOR 1430. PT.AND INFORMED.
--- NOTE | 2019-11-04 14:42 | NUR ---
PATIENT DISCHARGED BACK TO [facility]. ORTHO HERE THIS AM AND WOUND VAC REPLACED TO LEFT HIP AND PO ABX ORDERED. OK TO RETURN BACK TO NM. DR. PONCE NOTIFIED AND ORDERS RECEIVED. PO ABX AND SCHED ASPIRIN GIVEN ORDERED. NO IV ACCESS. PATIENT TAKEN OUT VIA WHEELCHAIR WITH TRANSPORTER AND ALL BELONGINGS.
== END 2019-11-04 14:47 | DRG 919 ==
LOC: M.ERS 11:05 → M.3W 13:01 → M.TBA-ER 13:01 → M.3W 17:39
PROVIDERS: Emergency Medicine; Orthopaedic Surgery; ADMIT Internal Medicine
PROC: 0S9B3ZZ Drainage of Left Hip Joint, Percutaneous Approach (ICD-10-PCS; principal; 2019-11-04)
DX: M96.840 Postprocedural hematoma of a musculoskeletal structure following a musculoskeletal system procedure (principal); G93.41 Metabolic encephalopathy; I10 Essential (primary) hypertension; Z96.642 Presence of left artificial hip joint; J44.9 Chronic obstructive pulmonary disease, unspecified; F32.9 Major depressive disorder, single episode, unspecified; F41.9 Anxiety disorder, unspecified; M79.7 Fibromyalgia; Z79.2 Long term (current) use of antibiotics; Z79.82 Long term (current) use of aspirin; Z99.81 Dependence on supplemental oxygen; Z79.891 Long term (current) use of opiate analgesic; Z79.899 Other long term (current) drug therapy; Z88.8 Allergy status to other drugs, medicaments and biological substances

== ENCOUNTER → 2019-12-15 | Outpatient (CLI) | payer MEDICARE ==
[~2019-12-15] MED LIST changes: +ACETAMINOPHEN500 M1 PO; +BACLOFEN5 MG PO; +DULCOLAX10 MG RC; +FLEET ENEMA133 ML RC; +MELATONIN5 MG SUBLING; +MILK OF MA2400 MG/11 PO; +MIRALAX119 GM PO
[2019-12-15 12:20] LABS: APTT 27.9 Seconds (25.0-31.3); PROTIME 10.5 Seconds (9.20-11.50)
== END ==
LOC: M.LAB 11:54
PROVIDERS: Orthopaedic Surgery
DX: S70.02XA Contusion of left hip, initial encounter (principal); X58.XXXA Exposure to other specified factors, initial encounter; Y93.89 Activity, other specified; Y92.89 Other specified places as the place of occurrence of the external cause; Y99.8 Other external cause status